=== PATIENT | female | born 1945 | race Caucasian/White ===

== ENCOUNTER 2016-07-11 12:22 | Emergency (ER) | payer MEDICARE, OTHER ==
[2016-07-11 11:43] LABS: ASCORBIC ACID (UR NOT ORDER) NEG (NEG); BILIRUBIN, URINE NEGATIVE (NEG); ER URINALYSIS TAT 0 Hrs 09 Mins; KETONE, URINE NEGATIVE (NEG); LEUKOCYTE ESTERASE(NOT OR TRACE (NEG); NITRITE (URINE) NEG (NEG); WBC (NOT ORDERED) (RFLEX) 3 (0-5)
[2016-07-11 12:04] LABS: BASOPHILS 0.3 %; BASOPHILS ABSOLUTE 0.03 10/3/uL (0.0-0.16); EOSINOPHILS 1.1 %; EOSINOPHILS ABSOLUTE 0.12 10/3/uL (0.0-0.53); ER CBC TAT 0 Hrs 08 Mins; HEMATOCRIT 40.8 % (36.0-48.0); IMMATURE GRANULOCYTES 0.2 %; IMMATURE GRANULOCYTES ABSOLUTE 0.02 10/3/uL (0.0-0.11); LYMPHOCYTES ABSOLUTE 2.74 10/3/uL (0.67-4.30); MEAN CORPUS HGB CONC 34.3 g/dL (32.0-36.0); MEAN CORPUSCULAR HEMOGLOB 30.5 pg (26.0-34.0); MEAN CORPUSCULAR VOLUME 88.9 fL (80-100); MONOCYTES 3.5 %; MONOCYTES ABSOLUTE 0.37 10/3/uL (0.21-1.20); NEUTROPHILS 68.9 %; NEUTROPHILS ABSOLUTE 7.27 10/3/uL (2.02-8.40); PLATELET COUNT 213 10/3/uL (150-400); RBC DISTRIBUTION WIDTH 13.5 % (12.0-16.0); RED CELL COUNT 4.59 10/6/uL (4.0-5.6); WHITE BLOOD CELLS 10.6 10/3/uL (4.5-10.5)
[2016-07-11 12:07] LABS: MANUAL DIFF NO %
[2016-07-11 12:19] LABS: A/G RATIO 1.5 (0.7-1.9); ALBUMIN 3.8 G/DL (3.5-5.0); ALKALINE PHOSPHATASE 87 U/L (45-117); BUN (BLOOD UREA NITROGEN) 21 MG/DL (6-23); CALCIUM, SERUM 9.2 MG/DL (8.5-10.4); CHLORIDE, SERUM 109 MMOL/L (96-112); CO2 (CARBON DIOXIDE) 28 MMOL/L (24-34); CREATININE 0.95 MG/DL (0.55-1.02); GFR AFRICAN AMERICAN 70 ML/MIN (>=60); GFR NON AFRICAN AMERICAN 60 ML/MIN (>=60); GLOBULIN 2.6 G/DL (2.5-4.1); GLUCOSE, SERUM 85 MG/DL (60-99); POTASSIUM, SERUM 3.9 MMOL/L (3.5-5.3); SGOT(AST) 14 U/L (5-40); SGPT(ALT) 26 U/L (5-65); SODIUM, SERUM 142 MMOL/L (135-148); TOTAL BILIRUBIN 0.3 MG/DL (0-1.2); TOTAL PROTEIN 6.4 G/DL (6.0-8.5)
[~2016-07-11 12:22] MED LIST: ATEN50 PO; BENEFIBER OTC PO; BIOTIN OTC PO; BLOOD PRESSURE MED PO; CIP5 PO; FLAG500TAB PO; GLUCPH PO; HARD NAILS PO; MOBIC15 MG PO; NORCO1 TA1 PO; PCET PO; PEPTO BISMOL UD30 ML PO; PRAVAC PO; PROBIOTIC PO; RESTORIL30 MG PO; RISP4 PO; TRANXENE 3.753.75 MG PO; WELLSR150 PO; XALAT OPH; XANAX1 MG PO; ZESTRIL5 MG PO
== END 2016-07-11 13:05 | disposition home or self-care (01) ==
LOC: ER 12:22
PROVIDERS: Nurse Practitioner Acute Care
DX: R33.9 Retention of urine, unspecified (principal); F32.9 Major depressive disorder, single episode, unspecified; Z88.5 Allergy status to narcotic agent; Z79.899 Other long term (current) drug therapy
CPT/HCPCS: 80053; 81001; 85025; 99283

== ENCOUNTER 2016-08-05 11:25 | Observation (INO) | payer MEDICARE, OTHER ==
[2016-08-02 15:10] LABS: HEMATOCRIT 39.3 % (36.0-48.0); HEMOGLOBIN 13.5 g/dL (12.0-16.0)
--- NOTE | ~2016-08-05 | OP ---
Record Of Operation [facility] [address] [place]. [address] NAME: ASHLEY PETERS : 43 STATUS : REG [facility] PAT#: [id number] AGE: 70 ADM/REG DATE : 08/05/16 MR#: [id number] REPORT SERV DATE: 08/05/16 DICTATED BY: CARLOS SCHULTZ III DATE: 08/05/16 REPORT STATUS : Draft TRANSCRIBED BY: MODL DATE: 08/05/16 DATE OF PROCEDURE: 08/05/2016 PREOPERATIVE DIAGNOSIS: Incomplete bladder emptying. POSTOPERATIVE DIAGNOSIS: Vaginal prolapse. PROCEDURES: Cystoscopy and urethral dilation. SURGEON: Carlos Schultz M.D. ANESTHESIA: General. SPECIMENS: None. DRAINS: None. BLOOD LOSS: None. INDICATION: Ms. Peters is a 70-year-old white female, with a history of urinary retention. She has been counseled. She states she has benefitted from urethral dilation in the past. Consent is obtained for cystoscopy and urethral dilation. PROCEDURE IN DETAIL: After consent was obtained and the patient was identified, she was taken to the OR and put to sleep. She was positioned in the low lithotomy position and prepped and draped in usual fashion. A 22-Burmese cystoscope was inserted and the bladder inspected. The bladder wall was slightly trabeculated. The ureteral orifices had a normal configuration and were normally positioned. There was a grade 1 cystocele. There were no tumors, stones, or foreign bodies noted. The bladder was left full and the scope removed. The female sounds were then used to sequentially dilate the urethra to 32-Burmese without undue force. Exam was performed. She was found to have an enterocele as well as rectocele. The scope was then used to drain the bladder. The scope was then removed. The patient was awakened and taken to recovery in stable condition. PH/MODL Carlos Schultz III, M.D. / [id number] CC: Veto Leary III, M.D.
[2016-08-06] MEDS ORDERED: NORCO1 TA1 PO (08:39)
== END 2016-08-06 11:09 | disposition home or self-care (01) ==
LOC: SDC 11:25 → 4SO 18:55
PROVIDERS: Urology
PROC: 0T7D0ZZ Dilation of Urethra, Open Approach (ICD-10-PCS; principal; 2016-08-05 12:45)
DX: N81.10 Cystocele, unspecified (principal); I10 Essential (primary) hypertension; E11.9 Type 2 diabetes mellitus without complications; F32.9 Major depressive disorder, single episode, unspecified; Z88.5 Allergy status to narcotic agent; Z90.89 Acquired absence of other organs; Z90.49 Acquired absence of other specified parts of digestive tract; Z98.890 Other specified postprocedural states
CPT/HCPCS: 82962; 85014; 85018; 93005; A9270-GY; G0378; J2250; J2405; J3010